=== PATIENT | male | born 1940 | race Caucasian/White ===

== ENCOUNTER 2018-01-22 14:53 | Inpatient (IN) | payer OTHER ==
[~2018-01-22] VITALS: Ht 177.8 cm; Wt 121.6 kg
[2018-01-22 14:57] VITALS: BP 126/64
[2018-01-22 15:44] LABS: ABSOLUTE BASOPHILS 0.1 thou/uL (0.0-0.2); ABSOLUTE EOSINOPHILS 0.2 thou/uL (0.0-0.7); ABSOLUTE LYMPHOCYTES 1.8 thou/uL (0.8-5.3); ABSOLUTE MONOCYTES 0.7 thou/uL (0.0-1.2); ABSOLUTE NEUTROPHILS 10.1 thou/uL (1.6-8.1); EOSINOPHILS 1.9 %; HEMATOCRIT 47.1 % (42.0-52.0); HEMOGLOBIN 15.5 gm/dL (14.0-18.0); LYMPHOCYTES 13.5 %; MCH 27.7 pg (26.0-34.0); MCHC 32.9 g/dL (28.0-37.0); MCV 84.2 fL (80.0-100.0); MONOCYTES 5.5 %; MPV 7.2 fl. (7.2-11.1); NUCLEATED RBCS 0 /100WBC; PLATELET COUNT* 336 thou/uL (150-400); POLYS 78.1 %; RBC 5.59 mil/uL (4.50-6.00); RDW-CV 16.1 % (10.5-14.5)
[2018-01-22 15:52] LABS: ANION GAP 8 mmol/L (7-16); BUN 29 mg/dL (7-18); CHLORIDE 100 mmol/L (98-107); CO2 24 mmol/L (21-32); CREATININE 1.9 mg/dL (0.6-1.3); GLUCOSE 133 mg/dL (70-99); SODIUM 132 mmol/L (136-145)
[2018-01-22 15:54] LABS: BE -1.7 mmol/L (-2 to +3); HCO3 22.2 mmol/L (22.0-26.0); PCO2 35.9 mmHg (35.0-45.0); PO2 61.3 mmHg (75.0-100.0)
[2018-01-22 15:59] LABS: ALBUMIN 2.9 g/dL (3.4-5.0); ALKALINE PHOSPHATASE 80 U/L (46-116); SGOT 20 U/L (15-37); SGPT 26 U/L (30-65); TOTAL BILIRUBIN 0.5 mg/dL (<0.1-1.0); TOTAL PROTEIN 7.7 g/dL (6.4-8.2); TROPONIN-I LEVEL <0.06 ng/mL (<0.06)
--- NOTE | 2018-01-22 17:14 | NUR ---
DR. HAZEL'S OFFICE CONTACTED TO GET MEDICATION LIST PT IS UNSURE OF DAILY MEDICATIONS
[2018-01-22 17:55] VITALS: BP 104/54
[2018-01-22 18:23] VITALS: BP 105/64
--- NOTE | 2018-01-22 19:23 | NUR ---
RECEIVED PT FROM ED AT 1755. PT ON O2 VIA NC @ 6 LPM. ADMISSION, ASSESSMENT AND HISTORY COMPLETED. IV FLUID INFUSING. PT DENIES PAIN. PERSONAL BELONGINGS SENT TO SECURITY. PT ORIENTED TO ROOM AND CALL LIGHT. WILL CONTINUE TO MONITOR.
[2018-01-22 20:00] VITALS: BP 121/49
[2018-01-23] VITALS: BP 100/58
[2018-01-23 04:00] VITALS: BP 110/55
[2018-01-23 04:37] LABS: HEMATOCRIT 41.4 % (42.0-52.0); HEMOGLOBIN 13.8 gm/dL (14.0-18.0); MCHC 33.3 g/dL (28.0-37.0); MCV 83.9 fL (80.0-100.0); MPV 7.6 fl. (7.2-11.1); NUCLEATED RBCS 0 /100WBC; PLATELET COUNT* 308 thou/uL (150-400); RBC 4.93 mil/uL (4.50-6.00); RDW-CV 15.6 % (10.5-14.5); WBC 9.2 thou/uL (4.0-11.0)
[2018-01-23 04:47] LABS: CALCIUM 8.2 mg/dL (8.5-10.1); CREATININE 1.8 mg/dL (0.6-1.3)
--- NOTE | 2018-01-23 06:15 | NUR ---
ASSUMED CARE OF PATIENT AT 1900 THE PATIENT REMAINS AFIB/AFLUTTER ON THE MONITOR O2 SAT MAINTAINED ON 6LNC TKS >92% OR < 96% THE PATIENT CONTINUES TO BE UP WITH ASSIST OF 1 TO THE ROUTINE REGIMEN CONTINUES TO BE EFFECTIVE FOR SX MANAGEMENT SAFETY INTERVENTIONS CONTINUE BED LOWERED WHEELS LOCKED CALL LIGHT IN REACH SIDE RAILS UP REPORT TO BE GIVEN TO LEXIE DEMARCO
[2018-01-23 07:00] LABS: ABSOLUTE EOSINOPHILS 0.1 thou/uL (0.0-0.7); ABSOLUTE MONOCYTES 0.1 thou/uL (0.0-1.2)
[2018-01-23 07:01] LABS: PLATELET ESTIMATE ADEQUATE
[2018-01-23 09:00] VITALS: BP 118/62
--- NOTE | 2018-01-23 09:00 | NUR ---
ASSUMED PT CARE AND RECEIVED REPORT AT 0730. PT. A/OX4, VSS, MONITOR ON TRACING AFLUTTER. PT. DENIES CURRENT PAIN/SOB. ON 4L NC @ 94%. FULL ASSESSMENT COMPLETED, REFER TO CHARTING. PT. REPORTS POOR SLEEP DURING THE NIGHT AND TIRED THIS MORNING. CALL LIGHT IN REACH, WILL CONTINUE WITH PLAN OF CARE.
[2018-01-23] MEDS ORDERED: NOVOLIN R SUBQ (09:19)
[2018-01-23] MEDS ORDERED: SHORT ACTING INSULIN SUBQ (09:20)
[2018-01-23] MEDS ORDERED: NORCO 5-325 TA1 EACH PO (09:21)
[2018-01-23] MEDS ORDERED: PRINIVIL20 MG PO (09:21)
[2018-01-23] MEDS ORDERED: AMARYL4 MG PO (09:22)
[2018-01-23] MEDS ORDERED: LEVOTHYROXINE PO (09:22)
[2018-01-23] MEDS ORDERED: CARDIZEM CD240 MG PO (09:24)
[2018-01-23] MEDS ORDERED: VENTOLIN HFA INH8 GM INH (09:52)
[2018-01-23] MEDS ORDERED: ADVAIR 250-501 EACH INH (09:52)
[2018-01-23] MEDS ORDERED: ASPIR 8181 MG PO (09:53)
[2018-01-23] MEDS ORDERED: FLONASE 0.05%50 MCG NASAL (09:53)
[2018-01-23] MEDS ORDERED: TOLTERODINE TART4 MG PO (09:54)
[2018-01-23] MEDS ORDERED: SPIRIVA18 MCG INH (09:54)
[2018-01-23] MEDS ORDERED: CLONAZEPAM 1 MG1 M1 PO (09:55)
[2018-01-23 12:00] VITALS: BP 118/54
[2018-01-23 16:00] VITALS: BP 112/49
[2018-01-23 17:25] LABS: CALCIUM 8.5 mg/dL (8.5-10.1); CREATININE 1.6 mg/dL (0.6-1.3); MAGNESIUM 1.7 mg/dL (1.8-2.4); POTASSIUM 5.8 mmol/L (3.5-5.1)
[2018-01-23 20:00] VITALS: BP 122/66
--- NOTE | 2018-01-23 20:06 | NUR ---
PT. STABLE THROUGH OUT SHIFT. UP TO CHAIR FOR MACEY. 2 HOURS THIS AFTERNOON. PT. NOTED TO BE EATING WHILE LAYING DOWN IN BED BY DR. FLANAGAN. DISCUSSED ASPIRATION RISK AND NEED TO SIT UP RIGHT WHEN EATING. FRANCESCAALGARY DC'D THIS SHIFT AFTER 1ST DOSE GIVEN DUE TO POSSIBLE NEED FOR THOROCENTISIS LATER THIS WEEK. HOURLY ROUNDING COMPLETED THROUGH OUT THE DAY FOR PT. SAFETY.
[2018-01-24] VITALS: BP 122/64
[2018-01-24 04:00] VITALS: BP 130/67
[2018-01-24 04:52] LABS: ABSOLUTE MONOCYTES 0.5 thou/uL (0.0-1.2); ABSOLUTE NEUTROPHILS 16.6 thou/uL (1.6-8.1); BASOPHILS 0.2 %; HEMATOCRIT 42.8 % (42.0-52.0); HEMOGLOBIN 13.9 gm/dL (14.0-18.0); LYMPHOCYTES 5.4 %; MCH 27.3 pg (26.0-34.0); MCHC 32.5 g/dL (28.0-37.0); MCV 84.1 fL (80.0-100.0); MONOCYTES 2.6 %; MPV 7.4 fl. (7.2-11.1); NUCLEATED RBCS 0 /100WBC; PLATELET COUNT* 317 thou/uL (150-400); POLYS 91.8 %; RBC 5.09 mil/uL (4.50-6.00); RDW-CV 15.7 % (10.5-14.5); WBC 18.1 thou/uL (4.0-11.0)
[2018-01-24 05:09] LABS: ALBUMIN 2.8 g/dL (3.4-5.0); CALCIUM 8.5 mg/dL (8.5-10.1); CREATININE 1.5 mg/dL (0.6-1.3); MAGNESIUM 1.7 mg/dL (1.8-2.4); POTASSIUM 5.7 mmol/L (3.5-5.1); TOTAL BILIRUBIN 0.4 mg/dL (<0.1-1.0)
--- NOTE | 2018-01-24 07:05 | NUR ---
ASSUMED CARE OF PATIENT AT 1900 THE PATIENT REMAINS AFIB ON THE MONITOR O2 SAT MAINTAINED ON 5L NC CONTINUES TO BE UP WITH ASSIST OF 1 TO THE BR THE ROUTINE REGIMEN CONTINUES TO BE EFFECTIVE FOR SX MANAGEMENT SAFETY INTERVENTIONS CONTINUE BED LOWERED WHEELS LOCKED CALL LIGHT IN REACH SIDE RAILS UP REPORT TO BE GIVEN TO LEXIE DEMARCO
[2018-01-24 08:00] VITALS: BP 117/45
--- NOTE | 2018-01-24 08:45 | CON ---
[address] [address] CONSULTATION Name: COLLETTE ACOSTA Room: [place] [address] ADM IN .R.#: [id number] Admission: 01/22/18 Attend Phys: Orville Graham MD Discharge: Date of : 42 Report #: [id number] THIS REPORT FOR: //name// CC: Orville Euceda DO DATE OF SERVICE: 01/23/2018 INDICATION: Atrial flutter. HISTORY OF PRESENT ILLNESS: The patient is a very pleasant 77-year-old gentleman status post SVT ablation in 2004. He was admitted to the hospital with pneumonia. In this setting, he is noted to have atrial tachyarrhythmias. On monitor presently it looks like atrial flutter. He is asymptomatic. He denies chest pain. There is no history of coronary disease. He is without other cardiac complaint at this time. PAST MEDICAL HISTORY: 1. Type 2 diabetes mellitus. 2. Pneumonia. 3. Hypertension. 4. COPD. PAST SURGICAL HISTORY: 1. Cholecystectomy. 2. Right wrist surgery. 3. Left shoulder surgery. 4. SVT ablation in 2004. FAMILY HISTORY: Noncontributory. ALLERGIES: PENICILLIN. SOCIAL HISTORY: The patient is retired. He does not smoke. He does not drink alcohol. HOME MEDICATIONS: Diltiazem 240 mg daily, lisinopril 20 mg daily, Novolin R sliding scale, Advair Diskus 250/50 b.i.d., albuterol q. 4 hours p.r.n., levothyroxine 100 mcg daily, aspirin 81 mg daily, Flonase daily, Spiriva daily, tolterodine 4 mg daily, clonazepam 1 mg b.i.d., glimepiride 4 mg daily, hydrocodone/acetaminophen p.r.n. REVIEW OF SYSTEMS: A 14-point review of systems is positive for cough productive of green sputum, pneumonia and COPD. He also notes some dyspnea. He reports some lower extremity edema. He has type 2 [place] [address] CONSULTATION Name: COLLETTE ACOSTA Room: [address] IN [facility]#: [id number] Admission: 01/22/18 Attend Phys: Orville Graham MD Discharge: Date of : 41 Report #: [id number] hypothyroidism. He reports penicillin allergy. He has DJD. Otherwise, 14-point review of systems unremarkable. PHYSICAL EXAMINATION: VITAL SIGNS: Stable. Blood pressure is 110/55, pulse is 84 and regular. GENERAL: Pleasant gentleman, in no distress. Mood and affect appropriate. HEENT: Extraocular muscles intact. Mucous membranes are moist. CHEST: Reveals clear lung guillermo. CARDIOVASCULAR: Reveals irregular rhythm without gallop or murmur. ABDOMEN: Reveals normal bowel sounds. EXTREMITIES: Shows no significant edema. Peripheral pulses 2+ and palpable. SKIN: Warm and dry. IMPRESSION AND RECOMMENDATIONS: 1. Atrial flutter, new onset. We will start sotalol 80 mg twice daily and Xarelto 20 mg daily. Follow up EKG in a.m. Consider cardioversion if the patient does not spontaneously convert. We did discuss possible re-ablation, although the patient is not particularly interested in that at this point in time. 2. Hypertension, stable. 3. Hypothyroidism, on replacement. 4. Diabetes, per primary physician. 5. Pneumonia, on IV antibiotics. <ELECTRONICALLY SIGNED> By: Mayo Hobson MD, [facility] 01/24/18 0845 1145 1942Micchanning Hobson MD, FACC /nt
[2018-01-24 12:00] VITALS: BP 129/68
--- NOTE | 2018-01-24 15:46 | EKG ---
[place] [address] ELECTROCARDIOGRAM REPORT Name: COLLETTE ACOSTA Room: [place] [address] ADM IN [facility].#: [id number] Admission: 01/22/18 Attend Phys: Orville Graham MD Discharge: Date of : 41 Report #: [id number] THIS REPORT FOR: //name// [facility] ED Test Date: 2018-01-22 Test Time: 15:03:53 Pat Name: COLLETTE ACOSTA Department: Room: Gender: Tile Classifier: Deacon YAO : 1940 Requested By: Zayra Patton Order Number: [id number] MD: Mayo Hobson Measurements Intervals [place] Rate: 105 P: ND: QRS: -46 QRSD: 85 T: 76 QT: 321 QTc: 425 Interpretive Statements Atrial flutter Left anterior fascicular block Low voltage, extremity and precordial leads Consider anterior infarct Compared to ECG 02/13/2009 16:04:59 Left anterior fascicular block now present Low QRS voltage now present Myocardial infarct finding now present Electronically Signed On 01-24-2018 15:46:39 CDT by Mayo Hobson [email or web address] <ELECTRONICALLY SIGNED> By: Mayo Hobson MD, FACC 01/24/18 1546 1503 1503 Mayo Hobson MD, FACC /EPI
[2018-01-24 16:00] VITALS: BP 123/61
--- NOTE | 2018-01-24 16:07 | EKG ---
[place] [address] ELECTROCARDIOGRAM REPORT Name: COLLETTE ACOSTA Room: [place] [address] ADM IN M.R.#: [id number] Admission: 01/22/18 Attend Phys: Orville Graham MD Discharge: Date of : 41 Report #: [id number] THIS REPORT FOR: //name// [facility] Test Date: 2018-01-24 Test Time: 08:42:18 Pat Name: COLLETTE ACOSTA Department: Room: [place] [address] Gender: M Caddie Supervisor: : 1940 Requested By: Mayo Hobson Order Number: [id number] MD: Mayo Hobson Measurements Intervals [place]acey Rate: 69 P: [place]: QRS: 5 QRSD: 138 T: 54 QT: 411 QTc: 441 Interpretive Statements Atrial flutter Nonspecific intraventricular conduction delay Minimal ST elevation, inferior leads Low voltage limb leads Low voltage precordial leads Compared to ECG 02/13/2009 16:04:59 Intraventricular conduction delay now present ST (T wave) deviation now present Sinus tachycardia no longer present First degree AV block no longer present Electronically Signed On 01-24-2018 16:07:13 CDT by Mayo Hobson [email or web address] <ELECTRONICALLY SIGNED> By: Mayo Hobson MD, FACC 01/24/18 1607 0842 0842 Mayo Hobson MD, FACC /EPI
--- NOTE | 2018-01-24 19:08 | NUR ---
PATIENT RESTING IN BED. UP AD REYNA IN ROOM. VITAL SIGNS STABLE AND PATIENT IN NO APPARENT DISTRESS AT THIS TIME. HOURLY ROUNDING COMPLETED FOR PATINET SAFETY AND PATIENT IN NOAPPARENT DISTRESS AT THIS TIME.
[2018-01-24 20:15] VITALS: BP 119/65
[2018-01-25] VITALS: BP 100/50
[2018-01-25 03:31] VITALS: BP 102/56
--- NOTE | 2018-01-25 05:33 | NUR ---
ASSUMED CARE AROUND 1930. PT A/OX4, PLEASANT, [place]. PT TEARFUL LAST NIGHT ABOUT PERSONAL ISSUES GOING ON AT HOME WITH SIG OTHER HAVING ALZHEIMERS. PT REPORTED ANXIETY, PRN MEDS GIVEN. RESTED SOME TONIGHT. TELE TRACING AFIB/FLUTTER WITH HR 40-70'S. ON 4L NC. IVF INFUSING ORDERED. VOIDING PER URINAL AT BEDSIDE. PAIN TREATED WITH PRN MEDS. REPORTING RIGHT EAR PAIN, SPOKE TO DR ECHOLS ABOUT IT LAST NIGHT. PHARMACY DOES NOT CARRY ANTIFUNGAL EAR GTTS. VSS. SEE CHARTING. CALL LIGHT IN REACH, WILL CONTINUE WITH PLAN OF CARE.
[2018-01-25 09:06] VITALS: BP 112/57
[2018-01-25 11:00] VITALS: BP 114/72
[2018-01-25 15:00] VITALS: BP 122/77
--- NOTE | 2018-01-25 16:10 | NUR ---
ASSESSMENT COMPLETED REFER TO COMPUTER CHARTING. NEURODIAGNOSTIC TECHNICIAN TRACKING SR. PATIENT RESTING IN BED REPORTING NO PAIN, NAUSEA OR SHORTNESS OF BREATH. BED IN LOW AND LOCKED POSITON. CALL LIGHT WITHIN REACH. IV SALINE LOCKED. PATIENT ON O2 VIA NASAL CANULA. WILL CONTINUE TO MONITOR THIS SHIFT.
[2018-01-25 18:11] LABS: CALCIUM 8.7 mg/dL (8.5-10.1); CREATININE 1.5 mg/dL (0.6-1.3); MAGNESIUM 1.6 mg/dL (1.8-2.4); POTASSIUM 4.6 mmol/L (3.5-5.1)
[2018-01-25 20:20] VITALS: BP 115/70
[2018-01-26] VITALS (7 sets, daily range): BP systolic 97–114; BP diastolic 52–73
[2018-01-26 05:10] LABS: ABSOLUTE BASOPHILS 0.1 thou/uL (0.0-0.2); ABSOLUTE EOSINOPHILS 0.1 thou/uL (0.0-0.7); ABSOLUTE LYMPHOCYTES 2.5 thou/uL (0.8-5.3); ABSOLUTE MONOCYTES 1.1 thou/uL (0.0-1.2); ABSOLUTE NEUTROPHILS 8.5 thou/uL (1.6-8.1); BASOPHILS 0.6 %; EOSINOPHILS 1.2 %; HEMATOCRIT 45.6 % (42.0-52.0); HEMOGLOBIN 14.9 gm/dL (14.0-18.0); LYMPHOCYTES 20.3 %; MCH 27.7 pg (26.0-34.0); MCHC 32.8 g/dL (28.0-37.0); MCV 84.6 fL (80.0-100.0); MONOCYTES 8.8 %; MPV 7.4 fl. (7.2-11.1); NUCLEATED RBCS 0 /100WBC; PLATELET COUNT* 314 thou/uL (150-400); POLYS 69.1 %; RBC 5.39 mil/uL (4.50-6.00); RDW-CV 15.8 % (10.5-14.5); WBC 12.3 thou/uL (4.0-11.0)
[2018-01-26 05:39] LABS: ALBUMIN 2.8 g/dL (3.4-5.0); CALCIUM 8.4 mg/dL (8.5-10.1); CREATININE 1.3 mg/dL (0.6-1.3); POTASSIUM 4.4 mmol/L (3.5-5.1); TOTAL BILIRUBIN 0.6 mg/dL (<0.1-1.0); TOTAL PROTEIN 6.6 g/dL (6.4-8.2)
--- NOTE | 2018-01-26 05:46 | NUR ---
Pt reports he is hopeful of being discharged tomorrow (Thursday) as he is "tired of being in the hospital." NPO since MN for Rt Thoracentesis today, and possible cardioversion. Pt remains in atrial flutter per monitor, HR 60s-70s. VSS. Will continue to monitor.
--- NOTE | 2018-01-26 08:19 | CON ---
[address] [address] CONSULTATION Name: COLLETTE ACOSTA Room: [place] [address] ADM IN .R.#: [id number] Admission: 01/22/18 Attend Phys: Orville Graham MD Discharge: Date of : 41 Report #: [id number] THIS REPORT FOR: //name// [facility] DATE OF SERVICE: 01/23/2018 REQUESTING PHYSICIAN: Orville Graham MD. INDICATION FOR CONSULTATION: Pulmonary infiltrates. HISTORY OF PRESENT ILLNESS: This is a 77-year-old gentleman. He states that he has a history of COPD and he is on long-term oxygen. He also states that he usually follows with Dr. Sims in our office and that I have also seen him on one previous occasion in the office. I do not, however, have the recollection of the same. I do not have office records available at this time. The patient's last admission to this hospital was in 2008. At that time, he did have elevation in creatinine up to 1.8 with subsequent creatinine returning up to 1.0. He has had SVT in the past requiring ablation; however, previously has not been in atrial fibrillation/flutter that he can recall. The patient says that he has been sick for the last 5 weeks or more. He has been following his primary care physician. He has been treated with at least 2 antibiotics. He recently completed a course of levofloxacin. He has received one other antibiotic recently, the name of which he does not recall. The patient continues to have significant infiltrates on chest x-rays, which have failed to resolve, which is the reason that he is in this hospital at this time. He reports that he has been becoming increasingly weak. He also has been coughing. He says he brought up a small amount of blood on a few occasions. Sputum has been, however, small in amount, although yellow. He does have shortness of breath. He has only mild increase in shortness of breath compared with his baseline. He does not report a fever. There is no chest pain. He does not have upper respiratory complaints at this time. There is no increase in swelling of lower extremities. There is no calf pain. The patient may have a history of disturbed sleep at night as well as sleepiness during the day, but he did not report any increase in the symptoms. He has had pain complaints. He does take narcotics long-term. Recently, he has also taken clonazepam. At the time of my examination, he was lying down and chewing on a gum. REVIEW OF SYSTEMS: A 12-point review of systems is negative except as mentioned above. PAST MEDICAL HISTORY: COPD, on long-term oxygen, not on long-term prednisone. He reports that he has had a congenital single kidney[place] [address] CONSULTATION Name: DAVECOLLETTE King Room: [place] [address] ADM IN M.R.#: [id number] Admission: 01/22/18 Attend Phys: Orville Graham MD Discharge: Date of : 41 Report #: [id number] normalized in 2009. I do not have a more recent creatinine available. Supraventricular tachycardia requiring ablation 4-5 years ago. He is not aware of any atrial fibrillation or flutter prior to this admission. Cholecystectomy, 3 wrist surgeries, diabetes, hernia surgery. SOCIAL HISTORY: He was a smoker, smoked more than a pack a day for several decades, discontinued 8-9 years ago. No known history of heavy alcohol use or illegal drug use. ALLERGIES: HE REPORTS THAT HE HAD HIVES WHILE HE WAS ON PENICILLIN IN THE PAST. He, however, has used Keflex on multiple occasions since then without any adverse reaction, so it appears that he does not have any cephalosporin allergy. CURRENT MEDICATIONS: The list is in [facility], reviewed. HOME MEDICATIONS: See discussion above. He was not on a blood thinner before this admission. He is on oxygen long-term. He has received recent antibiotics as discussed above. FAMILY HISTORY: No pertinent family history. PHYSICAL EXAMINATION: GENERAL: The patient is alert, awake and oriented. He is lying in bed and is chewing a gum. VITAL SIGNS: Has a pulse of 74, irregular, with a blood pressure of 112/49. He is on 3.5 liters oxygen via nasal cannula. He is saturating 94%. His respiratory rate is 16. He is afebrile with a temperature of 36.4. HEENT: Head is normocephalic and atraumatic. Pupils are equal and reactive. There is no throat erythema. He does appear to have a narrow airway. NECK: Does not show raised JVP, asymmetry, mass or lymph nodes. CHEST: Symmetrical expansion on inspection and palpation. On auscultation, however, breath sounds are decreased at the right lung base. HEART: Irregular. There is no murmur. ABDOMEN: Soft and nontender. EXTREMITIES: Lower extremities show no edema, no calf tenderness. SKIN: Dry and intact. NEUROLOGICAL: He moves all extremities bilaterally equally and spontaneously with no focal deficit identified. LABORATORY DATA: The patient's CT chest is reviewed and does show extensive right-sided infiltrates with a parapneumonic pleural effusion. The patient's lab work consistent with acute renal insufficiency with a creatinine rising to 1.9 yesterday in [facility] reviewed, 1.8 this morning. Potassium was 6.0 this morning. He has received fluid resuscitation. Arterial blood gas consistent with acute respiratory insufficiency in [facility] reviewed. CBC in [facility] reviewed, [place] [address] CONSULTATION Name: COLLETTE ACOSTA Room: [place] [address] [facility].#: [id number] Admission: 01/22/18 Attend Phys: Orville Graham MD Discharge: Date of : 41 Report #: [id number] ASSESSMENT AND PLAN: 1. Extensive right-sided pulmonary infiltrates with a parapneumonic pleural effusion: He has received Levaquin as well as another antibiotic recently. Therefore, I do feel that he should be broadly covered at this time. As he has already been treated with Levaquin, I would discontinue Levaquin at this time. He does not appear to have a cephalosporin allergy. I have started cefepime as well as metronidazole. On repeating labs at this time, I do feel that we need to have coverage for resistant gram-positive organisms. If his creatinine is not decreasing then I would have a low threshold of switching him over to linezolid. Note that he currently is on vancomycin. More cultures and serologies are ordered. The patient does have a pleural effusion. This may need tap. Therefore, I discontinued his Xarelto. If anticoagulation is needed in the interim, then suggest considering either heparin or Lovenox. He should already be anticoagulated until tomorrow morning with the dose of Xarelto that he already received. 2. Chronic obstructive pulmonary disease, on long-term oxygen: He does not appear to be actively bronchospastic. I only ordered 2 doses of Solu-Medrol for now. If glucoses increase as a result, suggest giving him more insulin. We will reassess tomorrow regarding whether more steroids are needed. He is on DuoNeb. 3. Acute renal insufficiency/single kidney: See discussion above. The patient is receiving fluid resuscitation and I agree with the same. Suggest watching potassium level closely. I have ordered repeat labs now. 4. New onset atrial flutter: Note that he has been started on sotalol by the Cardiology service. I did discontinue his Xarelto as mentioned above. He also has Lovenox and the prophylactic dose ordered. Lovenox can be continued from a pulmonary point of view if needed; however, may want to skip today's dose as he has already received Xarelto this morning. 5. Diabetes: See discussion above. 6. Aspiration risk: He is lying down and chewing gum. I recommend not eating or drinking while lying down. 7. Possible obstructive sleep apnea: Office records are not available to me at this time. I suspect that he does have previously undiagnosed obstructive sleep apnea. Favor considering an outpatient sleep study. <ELECTRONICALLY SIGNED> By: Ella Powers MD 01/26/18 0819 1712 [id number] Laguerre MD /nt
[2018-01-26 09:16] LABS: APTT 29.4 Seconds (25.0-31.3); INR 1.2; PROTIME 11.8 Seconds (9.20-11.50)
--- NOTE | 2018-01-26 11:28 | NUR ---
ASSUMED PT CARE AT 0730, FULL ASSESMENT DONE CHARTED. PT ORIENTED X4, DROWSY, IS ASKING WHEN HE CAN GO HOME, PT APPEARS ANXIOUS ABOUT THIS. THORACENTESIS SCHEDULED FOR THIS AFTERNOON. PT DENIES PAIN, VSS, 94% ON 3.5L O2, A FLUTTER ON THE MONITOR. IVF DC'D THIS AM. PT EDUCATED ON SITTING UP TO EAT, DRINK, TAKE MEDS. PT VERBALIZED UNDERSTANDING. FALL PREATUIONS IN PLACE. CALL LIGHT IN REACH, PT USES IT APPROPRILATY. WILL CONTINUE WITH PLAN OF CARE.
[2018-01-26 15:31] LABS: BF RBC 3186 /mm3; TOTAL CELL COUNT 3094 /mm3
[2018-01-26 15:35] LABS: CLARITY CLEAR; COLOR YELLOW; TOTAL VOLUME 1260 ml
[2018-01-26 15:47] LABS: BF MONOCYTES 4 %; SOURCE THORACENTESIS
[2018-01-26 15:48] LABS: BF LYMPHOCYTES 96 %
--- NOTE | 2018-01-26 16:39 | NUR ---
ATTEMPTED TO SEE PT EARLIER TODAY, WAS IN XRAY. WILL TRY LATER
[2018-01-27] VITALS (7 sets, daily range): BP systolic 91–113; BP diastolic 40–61
--- NOTE | 2018-01-27 06:58 | NUR ---
Pt states he wants to be discharged today, and seems quite adamant about the matter. Pt asked many questions regarding cardiac rhythm, monitoring, and antibiotics. Reports that he is breathing much better, and now all the more anxious to get home. VSS. Remains in atrial flutter per monitor. Will continue to monitor.
[2018-01-27 08:38] LABS: HEMATOCRIT 49.6 % (42.0-52.0); HEMOGLOBIN 16.2 gm/dL (14.0-18.0); MCH 27.5 pg (26.0-34.0); MCHC 32.6 g/dL (28.0-37.0); MCV 84.4 fL (80.0-100.0); MPV 8.2 fl. (7.2-11.1); NUCLEATED RBCS 0 /100WBC; PLATELET COUNT* 310 thou/uL (150-400); RBC 5.87 mil/uL (4.50-6.00); RDW-CV 15.8 % (10.5-14.5); WBC 12.7 thou/uL (4.0-11.0)
[2018-01-27 08:46] LABS: CALCIUM 8.8 mg/dL (8.5-10.1); CREATININE 1.3 mg/dL (0.6-1.3); POTASSIUM 4.5 mmol/L (3.5-5.1); TOTAL BILIRUBIN 0.8 mg/dL (<0.1-1.0); TOTAL PROTEIN 6.3 g/dL (6.4-8.2)
[2018-01-27 08:59] LABS: ABSOLUTE BASOPHILS 0.1 thou/uL (0.0-0.2); ABSOLUTE EOSINOPHILS 0.1 thou/uL (0.0-0.7); ABSOLUTE LYMPHOCYTES 2.9 thou/uL (0.8-5.3); ABSOLUTE MONOCYTES 1.3 thou/uL (0.0-1.2); ABSOLUTE NEUTROPHILS 8.3 thou/uL (1.6-8.1); ATYPICAL LYMPHS 1 %
[2018-01-27 09:00] LABS: PLATELET ESTIMATE ADEQUATE
[2018-01-27 11:09] LABS: BODY FLUID LDH 184 IU/L (()); BODY FLUID PROTEIN 3.1 g/dL (())
--- NOTE | 2018-01-27 11:30 | NUR ---
ASSUMED CARE OF PATIENT THIS AM AT 0730. PATIENT IS ALERT AND ORIENTED X 4. HE DENIES PAIN THIS AM AND WAS TALKING ABOUT BEING READY TO GO HOME. DR IN TO ROUND AND DISCHARGE DISCUSSED FOR A LATER DATE. PATIENT IS RESTING AT THIS TIME. TELE SHOWS CONTINUED A FLUTTER. NO FALLS OR INJURY. WILL CONTINUE TO MONITOR RESPIRATORY STATUS. NO FALLS OR INJURY.
--- NOTE | 2018-01-27 13:14 | CON ---
[address] [address] CONSULTATION Name: COLLETTE ACOSTA Room: [place] [address] ADM IN M.R.#: [id number] Admission: 01/22/18 Attend Phys: Orville Graham MD Discharge: Date of : 41 Report #: [id number] THIS REPORT FOR: //name// [facility] DATE OF SERVICE: 01/26/2018 INFECTIOUS DISEASE CONSULTATION ATTENDING PHYSICIAN: Orville Graham M.D. REASON FOR EVALUATION: Complicated pneumonitis with effusion, also has possible infection related to the external auditory canal, right side. HISTORY OF PRESENT ILLNESS: Chart reviewed, patient examined. This is a 77-year-old man, with O2-requiring COPD, who was admitted after roughly 2-week history of respiratory tract symptoms with cough, dyspnea, at times requiring increased O2 supplement, his baseline is roughly 3.5 liters, had been treated as an outpatient, given levofloxacin without improvement. On evaluation, followup chest x-ray showed right basilar infiltrate with possible effusion. In addition to that, he has had issues with pain and drainage from his right ear, describes as jet black and has been utilizing some Debrox, etc. He is scheduled to undergo thoracentesis. He is empirically placed on cefepime, metronidazole and vancomycin. Overall, he states he has seen some improvement. He is not encephalopathic. ALLERGIES: PENICILLIN. CURRENT MEDICATIONS: Include enoxaparin, guaifenesin, sotalol, levothyroxine, aspirin, glimepiride, lisinopril, oxycodone, pantoprazole, vancomycin, insulin, ipratropium and albuterol inhaler, cefepime. PAST MEDICAL HISTORY: As noted above, he has diabetes mellitus type 2, insulin requiring, O2-requiring COPD, congenital single kidney, atrial fibrillation, cholecystectomy. SOCIAL HISTORY: Former smoker. No ethanol. FAMILY HISTORY: Noncontributory. REVIEW OF SYSTEMS: As above. PHYSICAL EXAMINATION: GENERAL: He is alert, cooperative, in mild distress. He is lucid, appears to [place] [address] CONSULTATION Name: COLLETTE ACOSTA Room: [address] IN [facility]#: [id number] Admission: 01/22/18 Attend Phys: Orville Graham MD Discharge: Date of : 41 Report #: [id number] VITAL SIGNS: Temperature 97.4, pulse 60, respirations 20, blood pressure 108/56. SKIN: Warm, dry, no rashes. HEENT: I did examine the ear canal on the right, he does have some black type material. No evidence of drainage. I cannot see the tympanic membrane. There is not a great deal of inflammation noted. NECK: Supple. LUNGS: Few scattered coarse breath sounds, somewhat diminished overall. HEART: Borderline bradycardic. No appreciated murmur. ABDOMEN: Soft, mildly distended. There is some obesity and no peritoneal signs. GENITOURINARY AND RECTAL: Deferred. LABORATORY DATA: CRP of 4.0. Electrolytes: Sodium 139, potassium 4.4, chloride 107, bicarb is 24, anion gap of 8, BUN and creatinine 27 and 1.3 and glucose of 134. LFTs unremarkable. Albumin of 2.8. Total protein of 6.6. Estimated GFR 54. CBC: White count of 12.4, H and H 14.9 and 45.6 and platelets of 314. Culture sputum shows upper respiratory tract rosey. CT of the head with contrast showed no acute intracranial abnormalities, mild debris and soft tissue thickening deep within the right external auditory canal. ASSESSMENT: Pneumonitis, complicated by effusion. We will await results of the thoracentesis. Continue empiric therapy. In the event, we could get a sample. We will try to obtain debris related to the black discharge from his right ear canal and noted plans for some antifungal eardrops. At this point, he is not overtly toxic and there is no evidence of destructive process. <ELECTRONICALLY SIGNED> By: Jose A Stafford MD 01/27/18 1314 1121 1900Jorupal Stafford MD /nt
--- NOTE | 2018-01-27 13:25 | NUR ---
MET WITH PT TO DISCUSS HOME SITUATION/DC PLANNING. PT LIVES ALONE. HAS FRIENDS THAT LIVE NEARBY THAT CAN ASSIST AND ARE WATCHING HIS DOGS. FAMILY LIVES IN [place]. PT USES HOME O2, 3.5L THRU [facility]. HAS NEBULIZER [place] STATES STOPPED USING IT. HE STATES HE IS NORMALLY INDEPENDENT AND ABLE TO COOK, DRIVE AND DO OWN ADLS. PT PLANS TO RETURN HOME AT DC. DISCUSSED DPOA AND PT WAS ABLE TO FILL OUT, NOTARIZED AND PLACED ON CHART. DISCUSSED HH AND PRIVATE DUTY. ALSO GAVE INFO ON PD. PT IS INTERESTED IN HH, WILL DISCUSS FURTHER AND GIVE PT OPTIONS. WILL FOLLOW
[2018-01-27 15:06] LABS: SOURCE THORACENTESIS
[2018-01-28] VITALS: BP 101/65; BP 124/67
--- NOTE | 2018-01-28 00:50 | NUR ---
RECEIVED REPORT AND ASSUMED CARE OF PATIENT AT 1930. WHEEL ADJUSTER IN PLACE TRACING AFLUTTER. ASSESSMENT AND VITALS COMPLETED CHARTED, VSS. PATIENT REMAINS ON 3.5L O2 NC WITH SATS UPPER 90'S. DENIES SHORTNESS OF AIR. PATIENT HAS C/O PAIN AND REPORTS FEELING ANXIOUS BECAUSE HE "MISSES HIS 3 DOGS AND IS WORRIED ABOUT THEM." MEDICATIONS ADMINISTERED PER EMAR WITH RELIEF. PATIENT NOW SLEEPING. GOAL IS TO CONTINUE WITH PAIN AND ANXIETY MANAGEMENT, WELL TOLERATION OF SOTOLOL WITH RATE CONTROL. CALL LIGHT WITHIN REACH
[2018-01-28 04:00] VITALS: BP 100/57
[2018-01-28 05:22] LABS: ABSOLUTE BASOPHILS 0.1 thou/uL (0.0-0.2); ABSOLUTE EOSINOPHILS 0.8 thou/uL (0.0-0.7); ABSOLUTE LYMPHOCYTES 2.8 thou/uL (0.8-5.3); ABSOLUTE MONOCYTES 1.1 thou/uL (0.0-1.2); ABSOLUTE NEUTROPHILS 8.7 thou/uL (1.6-8.1); BASOPHILS 0.9 %; EOSINOPHILS 5.8 %; HEMATOCRIT 50.1 % (42.0-52.0); HEMOGLOBIN 16.5 gm/dL (14.0-18.0); LYMPHOCYTES 20.7 %; MCH 27.6 pg (26.0-34.0); MCHC 32.9 g/dL (28.0-37.0); MONOCYTES 8.1 %; NUCLEATED RBCS 0 /100WBC; PLATELET COUNT* 315 thou/uL (150-400); POLYS 64.5 %; RBC 5.97 mil/uL (4.50-6.00); RDW-CV 15.7 % (10.5-14.5); WBC 13.5 thou/uL (4.0-11.0)
--- NOTE | 2018-01-28 05:38 | NUR ---
PATIENT PROGRESSING TOWARDS GOALS: PATIENT HAS NOT HAD C/O PAIN OR ANXIETY SINCE BEDTIME. PATIENT'S HEART RATE CONTROLLED WITH SOTALOL AND BLOOD PRESSURE TOLERATING WELL. PATIENT HAS RESTED COMFORTABLY THIS SHIFT. PATIENT EAGER TO DISCHARGE HOME TODAY. HOURLY ROUNDING OBSERVED. CALL LIGHT WITHIN REACH
[2018-01-28 05:42] LABS: CREATININE 1.3 mg/dL (0.6-1.3); MAGNESIUM 1.6 mg/dL (1.8-2.4); POTASSIUM 4.3 mmol/L (3.5-5.1); TOTAL BILIRUBIN 0.9 mg/dL (<0.1-1.0); TOTAL PROTEIN 6.9 g/dL (6.4-8.2)
--- NOTE | 2018-01-28 07:30 | NUR ---
ASSUMED CARE OF PT ASSESSED AND DOCUMENTED. PT ON CARDIAC MONITER TRACING A-FLUTTER HR 78. PT IS A&O WITH NO C/O PAIN. VSS WNL. PT IS AFEBRILE. LUNGS ARE DIMINISHED. PT ON 3.5L OF 02. BED IS IN LOW POSITION CALL LIGHT IS IN REACH. WM.
[2018-01-28 08:00] VITALS: BP 112/66
[2018-01-28 10:58] LABS: URINE BILIRUBIN NEGATIVE (Negative); URINE BLOOD NEGATIVE (Negative); URINE CLARITY CLEAR; URINE COLOR YELLOW; URINE GLUCOSE-RANDOM NEGATIVE (Negative); URINE KETONES TRACE (Negative); URINE LEUKOCYTES-REFLEX NEGATIVE (Negative); URINE NITRITE-REFLEX NEGATIVE (Negative); URINE PROTEIN TRACE (Negative); URINE SPECIFIC GRAVITY >= 1.030 (1.005-1.030); URINE UROBILINOGEN 0.2 E.U./dl (0.2-1.0)
[2018-01-28] MEDS ORDERED: XARELTO20 MG PO (11:22)
--- NOTE | 2018-01-28 11:28 | NUR ---
ORDERS RECEIVED FOR DC HOME WITH HH. MET WITH PT, AGREEABLE TO USE [facility], CALLED AND FAXED ORDERS TO [facility]. PT HAS HOME O2. STATES HE PLANS TO GO HOME AND 'SLEEP, HAVEN'T SLEPT IN 6 DAYS.' HAS INFO FOR PRIVATE DUTY ALSO. NO OTHER NEEDS ID'D
[2018-01-28 11:31] VITALS: BP 93/43
[2018-01-28 11:36] VITALS: BP 98/56
[2018-01-28 12:05] LABS: BODY FLUID PH 7.6 (Not Estab.)
[2018-01-28] MEDS ORDERED: NOVOLIN N100 UNIT/1 SUBQ (12:49)
[2018-01-28] MEDS ORDERED: NOVOLIN R100 UNIT/1 SUBQ (12:53)
[2018-01-28] MEDS ORDERED: CEFUROXIME500 MG PO (13:29)
== END 2018-01-28 14:14 | disposition home or self-care (01) | DRG 177 ==
LOC: M.ERS 14:53 → M.2W 16:21 → M.TBA-ER 16:21 → M.2W 17:51
PROVIDERS: Internal Medicine Critical Care Medicine; Personal Emergency Response Attendant; ADMIT Internal Medicine
PROC: 0W993ZZ Drainage of Right Pleural Cavity, Percutaneous Approach (ICD-10-PCS; principal; 2018-01-26)
DX: J69.0 Pneumonitis due to inhalation of food and vomit (principal); J96.01 Acute respiratory failure with hypoxia; J90 Pleural effusion, not elsewhere classified; R65.10 Systemic inflammatory response syndrome (SIRS) of non-infectious origin without acute organ dysfunction; I48.92 Unspecified atrial flutter; N17.9 Acute kidney failure, unspecified; J44.0 Chronic obstructive pulmonary disease with (acute) lower respiratory infection; E03.9 Hypothyroidism, unspecified; I12.9 Hypertensive chronic kidney disease with stage 1 through stage 4 chronic kidney disease, or unspecified chronic kidney disease; E11.22 Type 2 diabetes mellitus with diabetic chronic kidney disease; E66.01 Morbid (severe) obesity due to excess calories; N18.9 Chronic kidney disease, unspecified; M19.90 Unspecified osteoarthritis, unspecified site; G89.29 Other chronic pain; F41.9 Anxiety disorder, unspecified; I48.91 Unspecified atrial fibrillation; G47.33 Obstructive sleep apnea (adult) (pediatric); Z90.49 Acquired absence of other specified parts of digestive tract; Z88.0 Allergy status to penicillin; Z99.81 Dependence on supplemental oxygen; Z87.891 Personal history of nicotine dependence; Z68.38 Body mass index [BMI] 38.0-38.9, adult